=== PATIENT | female | born 1960 | race Two or more races ===

== ENCOUNTER 2021-06-08 19:18 | Inpatient (IN) | payer OTHER ==
[~2021-06-08] VITALS: Ht 170.2 cm; Wt 68.0 kg
--- NOTE | 2021-06-08 19:35 | NUR ---
Pt brought back to room ED4A by triage nurse Eligio via RA due to r/o rt ankle FX. Pt seems to be in a great deal of pain based on her moning and grimacing. Pt placed on ED gurney and connected to monitor. Pt has IV on her Lt wrist, patent and flushing well. Inital VSS, PE WNL besides swellingnad contusion of Rt ankle. Pt is complaining of 10/10 pain.
[2021-06-08] MEDS ORDERED: KETOROLAC TROMETHAMINE 15 MG INJ IVP ONE (19:45)
[2021-06-08] MEDS ORDERED: ONDANSETRON 4 MG/2 ML VIAL IV ONE (19:45)
[2021-06-08] MEDS ORDERED: HYDROMORPHONE 1 MG/1 ML DISP.SYRIN IM ONE (19:45)
--- NOTE | 2021-06-08 19:45 | NUR ---
EDMD at bedside to assess pts condition and determine which XRays need to be ordered.
--- NOTE | 2021-06-08 20:00 | NUR ---
EDMD ordered 2 mg of dilaudid, 4 of zofran and 15 of toridol, meds given in an timmons manner due to pts extreme pain vocalization. Pt calmed down right away and states that the meds were very effective. Pt's Rt ankle elevated with gross trendelenburg and a pillow and some blankets underneath her Rt Leg.
[2021-06-08] MEDS ORDERED: KETOROLAC TROMETHAMINE 15 MG INJ ONE (20:09)
[2021-06-08] MEDS ORDERED: ONDANSETRON 4 MG/2 ML VIAL ONE (20:09)
--- NOTE | 2021-06-08 20:10 | NUR ---
Pt's injured Rt leg elevated above level of heart with pillow and blankets and trendelenberg. Ice pack placed on site of pain and swelling. Pt told to remove ice pack in 30 min on and 30 min off. Pt states that is given relief.
[2021-06-08] MEDS ORDERED: HYDROMORPHONE 2 MG/1 ML DISP.SYRIN ONE (20:17)
--- NOTE | 2021-06-08 20:20 | NUR ---
104/56, 79bpm, 97%RA, 16rpm, 1/10 pain.
--- NOTE | 2021-06-08 20:50 | NUR ---
Call placed to Dr. Mercedes's exchange, the orthopod data integrity consultant. The doubling machine operator instructed to expect a call back within 20 min. If no call recieved after 20 min, please recall the exchange.
[2021-06-08 21:07] LABS: HEMATOCRIT 24.7 % (31.2-41.9); MEAN CORPUSCULAR HEMOGLOBIN 25.5 uug (24.7-32.8); MEAN CORPUSCULAR VOLUME 79.5 fL (75.5-95.3); PLATELET COUNT (AUTO) 497 K/uL (179-408)
[2021-06-08 21:14] LABS: CREATININE 1.8 mg/dL (0.6-1.3); POTASSIUM 3.7 mmol/L (3.5-5.1)
[2021-06-08 21:47] LABS: IRON, SERUM 19 ug/dL (50-175)
--- NOTE | 2021-06-08 22:22 | NUR ---
Second call placed to Dr. Mercedes Orthopod for the rt ankle FX in 4A. EDMD still waiting on the ortho consult.
--- NOTE | 2021-06-08 22:28 | NUR ---
Pt is resting comfortably, with audible snoring. Pts VSS, Rt leg still elevated above level of heart and Ice pack on site of swelling and bruising. Told pt to move ice pack every 30min.
--- NOTE | 2021-06-08 22:34 | NUR ---
113/68, 75bpm,98% RA, 16 rpm, 0/10 pain
--- NOTE | 2021-06-08 22:50 | NUR ---
[facility] called regarding pt admission in house for FR of Rt ankle.
--- NOTE | 2021-06-08 23:24 | NUR ---
Dr Mercedes called back and Dr. Busby consulted him regarding pts dispo. We will try to admit pt here.
--- NOTE | 2021-06-08 23:51 | NUR ---
[employer] rep called with authorization number for admission of pt as inpatient for observation. authorization #: [id number] Addendum: 06/08/21 at 2352 by HUONG Correct Authorization #:[id number] other note has typo
[2021-06-09] MEDS ORDERED: MORPHINE SULFATE 2 MG/1 ML DISP.SYRIN IV PRN (00:30)
[2021-06-09] MEDS ORDERED: ACETAMINOPHEN 325 MG TABLET PO PRN (00:30)
[2021-06-09] MEDS ORDERED: MAGNESIUM HYDROXIDE 30 ML LIQUID UDC PO PRN ×2 (00:30→09:00)
[2021-06-09] MEDS ORDERED: Z GUARD REMEDY PASTE 57 GM TUBE TOP PRN ×2 (00:30→09:00)
[2021-06-09] MEDS ORDERED: ONDANSETRON 4 MG/2 ML VIAL IV PRN ×2 (00:30→09:00)
[2021-06-09] MEDS ORDERED: LINA5TAB PO (00:34)
[2021-06-09] MEDS ORDERED: FLUO40CA49 PO (00:34)
[2021-06-09] MEDS ORDERED: INSU100C SUBCUT (00:34)
[2021-06-09] MEDS ORDERED: GABA600T12 PO (00:34)
[2021-06-09] MEDS ORDERED: BUPR-319 PO (00:34)
[2021-06-09] MEDS ORDERED: TRAZ-182 PO (00:34)
[2021-06-09] MEDS ORDERED: METH2.5T PO (00:34)
[2021-06-09] MEDS ORDERED: FOLI1TAB94 PO (00:34)
[2021-06-09] MEDS ORDERED: HYDROMORPHONE 1 MG/1 ML DISP.SYRIN IV ONE (00:45)
[2021-06-09] MEDS ORDERED: HYDROMORPHONE 2 MG/1 ML DISP.SYRIN ONE (00:48)
[2021-06-09] MEDS: IV D5/ 0.9% NACL 1,000 ML IV PRN ×2 (01:22→06:28)
--- NOTE | 2021-06-09 01:23 | NUR ---
Pt was recieving second round of pain meds. Dilaudid 3mg IV administered without difficulty and pt states feeling relief and tolerated well. However, upon connecting the 1L D5NS, I noticed that the IV site was infiltrated and that fluid was collecting in the SubQ space. IV shut off immediately and pt assessed for pain at the IV site. Pt denied the infiltration hurting . IV Dced from Rt wrist and site dressed with bulky dressing. IV will be restarted on opposite arm.
--- NOTE | 2021-06-09 01:29 | NUR ---
Reassessed pts pain level after dilaudid administration. Pt states her pain is still at a 7/10. I informed pt that she has a prn order for both morphine and APAP and that if she is still in pain she can ask for more pain medication. I offered to give her morphine but she refused and said she will let me know if she needs more medication or if she is feeling nauseated and would like an anti-emetic.
[2021-06-09 06:20] LABS: CREATININE 2.2 mg/dL (0.6-1.3); MAGNESIUM 2.1 mg/dL (1.8-2.4); PHOSPHOROUS 4.4 mg/dL (2.5-4.9); POTASSIUM 5.3 mmol/L (3.5-5.1)
[2021-06-09 06:21] LABS: MEAN CORPUSCULAR HEMOGLOBIN 25.9 uug (24.7-32.8); MEAN CORPUSCULAR VOLUME 81.2 fL (75.5-95.3); PLATELET COUNT (AUTO) 435 K/uL (179-408)
--- NOTE | 2021-06-09 06:30 | NUR ---
Pt being premedicated with morphine 2mg before splint application.
[2021-06-09] MEDS ORDERED: MORPHINE SULFATE 2 MG/1 ML DISP.SYRIN ONE (06:40)
--- NOTE | 2021-06-09 07:23 | NUR ---
.After gathering the supplies needed for splint application, pt prepared with brief primer of the procedure so that she is aware of what is about to happen. Pt informed that splint application will proceed quickly due to the short hardening time of the fiberglass material; after wetting the splint material, I only have a few minutes to apply splint and make sure it is properly positioned and wrapped before the fiberglass material gets too hard and and is unmaliable. Pt's skin is protected from the splint material using 6in and 3 in stockinette. Site is prepared first, rt ankle is thoroughly padded and awaiting splint application. splint thoroughly and completely wet and saturated with cold H2O; then thoroughly dried using large bath towels. First posterior shortleg applied using 4in OCL x36in. then stir-up splint placed over the posterior shortleg utilizing a second pair of hands to keep everything in place. Finally once proper positioning ensured, and that the splint is not pinching or poking pt anywhere, the splint is carefully and methodically wrapped using 6in clemente x2, making sure not to wrap clemente too tight due to elastic nature of clemente and its tendency to become too constictive. Pt had good CMS and cap refill less then 3 sec before and after splint application. Pt educated on what to look for when assessing splint and making sure its not constricting blood flow. Pt also tought about RICE and proper management and care of splint until ortho unwraps it. pt tolerated well with very little associated pain 4/10 at most painful point of procedure.
--- NOTE | 2021-06-09 08:53 | NUR ---
thorough Report just given to [facility] KASSY Daigle using SBAR method. [facility] gave green light to transport pt at our earliest convienience. Pt is being loaded up and prepared for transfer to [facility]. VSS, PE WNL, pt has good color and appearance. no s/sx of distess present. Pt resting comfortably.
[2021-06-09 09:30] VITALS: BP 101/43
--- NOTE | 2021-06-09 09:38 | NUR ---
Received patient from ED via [facility]. Patient awake, alert and oriented x 4. On room air. No signs of acute distress. Denies pain at this time. Oriented patient to unit and room. Call light within reach. Bed alarm on for safety. BP 101/43 HR 69 RR 16. Will continue to monitor.
[2021-06-09 12:00] VITALS: BP 92/44
[2021-06-09] MEDS ORDERED: INSULIN REGULAR, HUMAN 300 UNIT/3 ML VIAL SQ PRN (14:45)
[2021-06-09] MEDS ORDERED: DEXTROSE 50% 50 ML DISP.SYRIN IV PRN ×2 (14:45→15:15)
[2021-06-09 15:19] VITALS: BP 102/45
[2021-06-09] MEDS ORDERED: IV NORMAL SALINE 500 ML IV ONE (15:45)
[2021-06-09] MEDS ORDERED: DEXTROSE 50% 50 ML DISP.SYRIN IV ONE (15:45)
[2021-06-09] MEDS ORDERED: INSULIN REGULAR, HUMAN 300 UNIT/3 ML VIAL IV ONE (15:45)
[2021-06-09] MEDS ORDERED: BLOOD SUGAR DIAGNOSTIC 1 EACH STRIP VI SCH (16:30)
[2021-06-09] MEDS: BLOOD SUGAR DIAGNOSTIC 1 EACH STRIP VI SCH ×2 (17:15→21:30)
[2021-06-09] MEDS: INSULIN REGULAR, HUMAN 300 UNIT/3 ML VIAL SQ PRN ×2 (17:59→21:31)
[2021-06-09 18:44] VITALS: BP 100/42
--- NOTE | 2021-06-09 18:45 | NUR ---
Patient resting in bed. Aox3-4. On room air. No signs of acute distress. Patient denies pain at this time. BP 100/42. Compliant with medications and care. IV access patent and intact. Scheduled Right ankle ORIF in am. Consent in chart. Will endorse to incoming shift for continuity of care.
--- NOTE | 2021-06-09 19:10 | NUR ---
Received patient lying in bed. AAOX4, icelandic speaking with limited Sierra Leonean. On room air. IVF on L AC running D5 1/ NS at 100cc/hr. Patient complained of pain at right ankle Tylenol 325mg (2tablets) were given and tolerated well. Reminded patient regarding surgery tomorrow, to be kept on NPO after midnight. Safety precautions initiated. Will continue to monitor.
[2021-06-09 20:00] VITALS: BP 126/65
--- NOTE | 2021-06-09 20:30 | NUR ---
Collected nasal swab, for COVID antigen testing. Sent to lab.
[2021-06-09] MEDS: ACETAMINOPHEN 325 MG TABLET PO PRN (21:33)
[2021-06-09] MEDS: MORPHINE SULFATE 2 MG/1 ML DISP.SYRIN IV PRN (22:51)
[2021-06-10] VITALS (8 sets, daily range): BP systolic 108–141; BP diastolic 40–61
--- NOTE | 2021-06-10 | NUR ---
Patient rapid test came back negative.
--- NOTE | 2021-06-10 01:00 | NUR ---
IV on LAC, accidentally got dislodged. Reinserted new IV on R FA, 20 gauge, infusing well.
--- NOTE | 2021-06-10 03:40 | NUR ---
Urine collected and sent to lab.
[2021-06-10] MEDS: IV D5/ 0.9% NACL 1,000 ML IV PRN ×2 (04:17→16:24)
[2021-06-10] MEDS: MORPHINE SULFATE 2 MG/1 ML DISP.SYRIN IV PRN ×3 (05:35→19:35)
[2021-06-10 05:42] LABS: *BILIRUBIN,URIN NEGATIVE (NEGATIVE); *BLOOD, URINE 1+ (NEGATIVE); *COLOR,URINE YELLOW (YELLOW); *KETONES,URINE NEGATIVE (NEGATIVE); *UROBILINOGEN,URINE 0.2 E.U./dl (NORMAL); LEUKOCYTE ESTERASE ,URINE 2+ (NEGATIVE); NITRITE, URINE NEGATIVE (NEGATIVE); PH,URINE 5.5 (5.0-8.0); UGLUCOSE 1+ (NEGATIVE)
[2021-06-10 06:00] LABS: *CLARITY,URINE HAZY (CLEAR)
--- NOTE | 2021-06-10 06:16 | NUR ---
Patient slept intermittently through the night, with frequent complaints of pain at right ankle. Pain medication and cooling measures done to reduce pain. IVF on RFA, 20 gauge, infusing well. Patient kept on NPO in preparation for surgery. Pre-op checklist completed. All needs were attended to and met. Safety precautions maintained. Will endorse to day shift.
[2021-06-10 06:32] LABS: MEAN CORPUSCULAR VOLUME 80.2 fL (75.5-95.3); PLATELET COUNT (AUTO) 310 K/uL (179-408)
[2021-06-10] MEDS ORDERED: VANCOMYCIN 1000 MG VIAL ONE (07:09)
[2021-06-10] MEDS ORDERED: BUPIVACAINE 0.25% 30 ML VIAL ONE (07:09)
[2021-06-10 07:11] LABS: HEMATOCRIT 20.6 % (31.2-41.9)
[2021-06-10 07:25] LABS: PHOSPHOROUS 3.1 mg/dL (2.5-4.9)
[2021-06-10] MEDS: BLOOD SUGAR DIAGNOSTIC 1 EACH STRIP VI SCH ×4 (07:39→21:09)
--- NOTE | 2021-06-10 07:40 | NUR ---
Received critical lab report from laboratory. Patient's HGB 6.7 and [address]6. Both Dr. Mercedes and Antoine INSTALLATION TECHNICIAN were advised accordingly. Antoine INSTALLATION TECHNICIAN ordered 2 prbcs. Will endorse to day shift.
--- NOTE | 2021-06-10 11:30 | NUR ---
Blood transfusion started. BP 141/49 HR 86 Temp 101.1. Patient refused Tylenol at this time. Cooling measures done. Will continue to monitor.
[2021-06-10] MEDS: INSULIN REGULAR, HUMAN 300 UNIT/3 ML VIAL SQ PRN ×3 (12:13→21:02)
[2021-06-10] MEDS: ACETAMINOPHEN 325 MG TABLET PO PRN ×2 (12:36→20:50)
[2021-06-10 17:48] LABS: BACTERIA,URINE MODERATE /HPF (NONE SEEN); SQUAMOUS EPITHELIAL CELL,UR MANY /HPF (NONE SEEN); WBC,URINE 20-50 /HPF (0-3)
--- NOTE | 2021-06-10 19:35 | NUR ---
Patient resting in bed. AOx4. On room air. No signs of acute distress. Patient denies pain/ discomfort at this time. Needs anticipated and met. Will endorse to incoming shift for continuity of care.
[2021-06-11] MEDS: IV D5/ 0.9% NACL 1,000 ML IV PRN (03:34)
[2021-06-11 04:00] VITALS: BP 123/52
[2021-06-11] MEDS: ACETAMINOPHEN 325 MG TABLET PO PRN (04:32)
[2021-06-11] MEDS: MORPHINE SULFATE 2 MG/1 ML DISP.SYRIN IV PRN ×2 (05:51→23:35)
[2021-06-11] MEDS ORDERED: MORPHINE SULFATE 4 MG/1 ML DISP.SYRIN ONE (05:52)
[2021-06-11] MEDS: BLOOD SUGAR DIAGNOSTIC 1 EACH STRIP VI SCH ×4 (06:17→21:22)
[2021-06-11] MEDS: INSULIN REGULAR, HUMAN 300 UNIT/3 ML VIAL SQ PRN ×4 (06:17→21:24)
[2021-06-11 07:03] LABS: HEMATOCRIT 23.1 % (31.2-41.9); MEAN CORPUSCULAR HEMOGLOBIN 26.4 uug (24.7-32.8); MEAN CORPUSCULAR VOLUME 79.8 fL (75.5-95.3); PLATELET COUNT (AUTO) 289 K/uL (179-408)
[2021-06-11 07:23] LABS: CREATININE 1.6 mg/dL (0.6-1.3); MAGNESIUM 1.7 mg/dL (1.8-2.4); PHOSPHOROUS 2.9 mg/dL (2.5-4.9); POTASSIUM 4.7 mmol/L (3.5-5.1)
[2021-06-11] MEDS ORDERED: VANCOMYCIN 1000 MG VIAL ONE (08:03)
[2021-06-11] MEDS ORDERED: HYDROMORPHONE 2 MG/1 ML DISP.SYRIN ONE (08:04)
[2021-06-11] MEDS ORDERED: BUPIVACAINE 0.25% 30 ML VIAL ONE (08:05)
[2021-06-11] MEDS ORDERED: MIDAZOLAM HCL 2 MG/2 ML VIAL ONE (08:05)
[2021-06-11] MEDS ORDERED: CEFAZOLIN 1 G VIAL ONE (08:06)
[2021-06-11] MEDS ORDERED: NORMAL SALINE 10 ML VIAL ONE (08:07)
[2021-06-11] MEDS ORDERED: MAGNESIUM SULFATE/D5W 100 ML IV SCH (09:30)
[2021-06-11] MEDS ORDERED: LIDOCAINE-MPF 2% 5 ML VIAL IJ ONE (09:37)
[2021-06-11] MEDS ORDERED: SEVOFLURANE 250 ML BOTTLE IH ONE (09:37)
[2021-06-11] MEDS ORDERED: DEXAMETHASONE SOD PHOSPHATE 4 MG INJ IV ONE (09:37)
[2021-06-11] MEDS ORDERED: CEFAZOLIN 1 G VIAL IM ONE (09:37)
[2021-06-11] MEDS ORDERED: ONDANSETRON 4 MG/2 ML VIAL IV ONE (09:37)
[2021-06-11] MEDS ORDERED: KETOROLAC TROMETHAMINE 30 MG INJ IM ONE (09:37)
[2021-06-11] MEDS ORDERED: PROPOFOL 200 MG/20 ML BOTTLE IV ONE (09:37)
[2021-06-11] MEDS ORDERED: IV NS 1000 ML 1,000 ML IV PRN (11:00)
[2021-06-11 12:00] VITALS: BP 122/56
[2021-06-11] MEDS ORDERED: POTASSIUM CHLORIDE 20 MEQ in IV D5 1/2 NS 1000 ML 1,000 ML IV PRN (12:00)
[2021-06-11] MEDS ORDERED: Medication Not On Formulary EA (Gabapentin 600 MG) PO SCH (13:00)
[2021-06-11] MEDS: IV NS 1000 ML 1,000 ML IV PRN (14:59)
[2021-06-11] MEDS: CEFAZOLIN 1 G in IV DEXTROSE 5% 50 ML IV SCH ×2 (15:04→23:35)
[2021-06-11] MEDS: LOSARTAN POTASSIUM 50 MG TABLET PO SCH (15:05)
[2021-06-11] MEDS: GABAPENTIN 300 MG CAPSULE PO SCH ×2 (15:05→17:47)
[2021-06-11 16:00] VITALS: BP 127/54
[2021-06-11] MEDS: TRAZODONE 50 MG TABLET PO SCH (21:06)
[2021-06-11] MEDS: INSULIN GLARGINE,HUM 300 UNITS/3 ML CARTRIDGE SQ SCH (21:24)
[2021-06-12] MEDS: IV NS 1000 ML 1,000 ML IV PRN (06:27)
[2021-06-12] MEDS: BLOOD SUGAR DIAGNOSTIC 1 EACH STRIP VI SCH ×4 (06:33→22:22)
--- NOTE | 2021-06-12 06:44 | NUR ---
PATIENT AWAKE IN BED. NO C/O PAIN AT THIS TIME. SLEPT WELL. ELEVATED ON PILLOWS AND Addendum: 06/12/21 at 0647 by LIVIA ANTONY LVN NEURO-VASCULAR CHECKS WNL. SENSATION PRESENT. VS WNL. IVF INFUSING WELL. CALL LIGHT IN REACH. ALL NEEDS ATTENDED. WILL CONTINUE TO MONITOR AND ASSESS.
[2021-06-12 06:47] VITALS: BP 108/59
--- NOTE | 2021-06-12 07:15 | NUR ---
Patient asleep in bed. On room air. No signs of acute distress. Will continue to monitor.
[2021-06-12 08:12] VITALS: BP 115/58
[2021-06-12] MEDS: INSULIN REGULAR, HUMAN 300 UNIT/3 ML VIAL SQ PRN ×4 (08:26→22:21)
[2021-06-12] MEDS: GABAPENTIN 300 MG CAPSULE PO SCH ×3 (08:37→16:22)
[2021-06-12] MEDS: FLUOXETINE HCL 20 MG CAPSULE PO SCH (08:37)
[2021-06-12] MEDS: LINAGLIPTIN 5 MG TABLET PO SCH (08:37)
[2021-06-12] MEDS: buPROPion XL 150 MG TAB.SR.24H PO SCH (08:37)
[2021-06-12] MEDS: LOSARTAN POTASSIUM 50 MG TABLET PO SCH (08:38)
[2021-06-12 08:45] LABS: HEMATOCRIT 24.6 % (31.2-41.9); MEAN CORPUSCULAR HEMOGLOBIN 26.3 uug (24.7-32.8); MEAN CORPUSCULAR VOLUME 80.3 fL (75.5-95.3); PLATELET COUNT (AUTO) 336 K/uL (179-408)
[2021-06-12] MEDS ORDERED: FLUOXETINE HCL 80 MG PO SCH (09:00)
[2021-06-12] MEDS ORDERED: Medication Not On Formulary EA (Bupropion Hcl (Bupropion Xl) 300 MG) PO SCH (09:00)
[2021-06-12 09:17] LABS: CREATININE 1.5 mg/dL (0.6-1.3); MAGNESIUM 2.3 mg/dL (1.8-2.4); PHOSPHOROUS 3.5 mg/dL (2.5-4.9); POTASSIUM 5.6 mmol/L (3.5-5.1)
[2021-06-12] MEDS: MORPHINE SULFATE 2 MG/1 ML DISP.SYRIN IV PRN ×2 (10:07→20:25)
[2021-06-12] MEDS ORDERED: IV NS 1000 ML 1,000 ML IV ONE (10:30)
[2021-06-12 13:17] VITALS: BP 109/42
[2021-06-12 17:15] VITALS: BP 98/40
--- NOTE | 2021-06-12 18:29 | NUR ---
Patient resting bed. AOx3-4. On room air. No signs of acute distress. Patient complained of pain, Morphine IV PRN given and patient tolerated well and expressed relief. IV access patent and intact, NS running at 100cc/hr. Compliant with medications and care. Bed alarm on. Call light within reach. Will endorse to incoming shift for continuity of care.
[2021-06-12 20:00] VITALS: BP 121/58
--- NOTE | 2021-06-12 20:00 | NUR ---
PATIENT ALERT ORIENTED SPEAK AMERICAN, EROSION CONTROL SPECIALIST ABLE TO INTERPRET FOR THE PATIENT, PATIENT COMPLAIN OF R ANKLE PAIN, WILL MEDICATE ORDERED, PATIENT WAS ENCOURAGED TO USE INCENTIVE SPIROMETER TO PREVENT SURGICAL COMPLICATIONS, PATIENT TOLERATE PO, AND VOIDING WELL, CONT TO MONITOR
[2021-06-12] MEDS: TRAZODONE 50 MG TABLET PO SCH (20:15)
[2021-06-12] MEDS ORDERED: SODIUM POLYSTYRENE SULFONATE 15 G/60 ML LIQUID UDC PO ONE (21:15)
[2021-06-12] MEDS: INSULIN GLARGINE,HUM 300 UNITS/3 ML CARTRIDGE SQ SCH (22:20)
[2021-06-13 04:56] VITALS: BP 120/53
[2021-06-13] MEDS: BLOOD SUGAR DIAGNOSTIC 1 EACH STRIP VI SCH ×4 (06:40→20:25)
--- NOTE | 2021-06-13 06:46 | NUR ---
PATIENT AWAKE, NO SOB NO CHEST PAIN, PATIENT R ANKLE STILL SWOLEEN, COLOR PINK, NO NUMBNESS NOTED, DENIES AT THIS TIME, KEPT ELEVATED, NO BM YET, GIVEN KAYEXALATE LAST NIGHT FOR ELEVATED KCL, WEARS DIAPERS, KEPT CLEAN AND DRY. DENIES PAIN.
[2021-06-13 08:32] LABS: CREATININE 1.6 mg/dL (0.6-1.3); MAGNESIUM 2.2 mg/dL (1.8-2.4); POTASSIUM 4.8 mmol/L (3.5-5.1)
[2021-06-13 08:34] LABS: HEMATOCRIT 22.4 % (31.2-41.9); MEAN CORPUSCULAR HEMOGLOBIN 26.7 uug (24.7-32.8); MEAN CORPUSCULAR VOLUME 81.4 fL (75.5-95.3); PLATELET COUNT (AUTO) 337 K/uL (179-408)
[2021-06-13] MEDS: INSULIN REGULAR, HUMAN 300 UNIT/3 ML VIAL SQ PRN ×4 (08:38→20:31)
[2021-06-13] MEDS: IV NS 1000 ML 1,000 ML IV PRN (08:39)
--- NOTE | 2021-06-13 09:05 | NUR ---
Critical lab value: Hemoglobin 7.3. Dr. Rodrigues informed.
[2021-06-13] MEDS: FLUOXETINE HCL 20 MG CAPSULE PO SCH (09:28)
[2021-06-13] MEDS: LINAGLIPTIN 5 MG TABLET PO SCH (09:28)
[2021-06-13] MEDS: GABAPENTIN 300 MG CAPSULE PO SCH ×3 (09:28→17:04)
[2021-06-13] MEDS: LOSARTAN POTASSIUM 50 MG TABLET PO SCH (09:29)
[2021-06-13] MEDS: buPROPion XL 150 MG TAB.SR.24H PO SCH (09:33)
[2021-06-13] MEDS: levoFLOXacin 250 MG TABLET PO SCH (10:25)
[2021-06-13 12:00] VITALS: BP 100/50
[2021-06-13] MEDS: SOD FERRIC GLUC COMPLX/SUCROSE 125 MG in IV NORMAL SALINE 100 ML IV SCH (15:30)
[2021-06-13 16:00] VITALS: BP_SYST 116; BP_SYST 146; BP_DIAS 52; BP_DIAS 54
[2021-06-13] MEDS: MORPHINE SULFATE 2 MG/1 ML DISP.SYRIN IV PRN (17:04)
[2021-06-13] MEDS: ACETAMINOPHEN 325 MG TABLET PO PRN (20:16)
[2021-06-13] MEDS: TRAZODONE 50 MG TABLET PO SCH (20:17)
[2021-06-13 20:58] VITALS: BP 138/59
[2021-06-13] MEDS ORDERED: INSULIN GLARGINE,HUM 300 UNITS/3 ML CARTRIDGE SQ SCH (21:00)
[2021-06-14] MEDS: MORPHINE SULFATE 2 MG/1 ML DISP.SYRIN IV PRN (04:43)
[2021-06-14] MEDS: IV NS 1000 ML 1,000 ML IV PRN (04:44)
[2021-06-14 04:45] VITALS: BP 121/52
--- NOTE | 2021-06-14 06:44 | NUR ---
Patient slept throughout the night. AO x 4. Peruvian speaking but able to verbalize needs. On room air saturating at 97%. No signs of acute distress. IS by bedside. Educated pt importance on IS and breathing techniques. Pt compliant with medication and care. Morphine 2mg IVP given for pain. Effective. IV in R Wrist #20 running NS at 43ml/hr. Needs have been met. Call lights within reach, safety measures maintained. Will endorse to am shift.
[2021-06-14] MEDS: BLOOD SUGAR DIAGNOSTIC 1 EACH STRIP VI SCH ×2 (07:23→12:47)
[2021-06-14] MEDS: GABAPENTIN 300 MG CAPSULE PO SCH ×2 (08:52→12:50)
[2021-06-14] MEDS: INSULIN REGULAR, HUMAN 300 UNIT/3 ML VIAL SQ PRN ×2 (08:52→12:49)
[2021-06-14] MEDS: LINAGLIPTIN 5 MG TABLET PO SCH (08:53)
[2021-06-14] MEDS: buPROPion XL 150 MG TAB.SR.24H PO SCH (08:53)
[2021-06-14] MEDS: FLUOXETINE HCL 20 MG CAPSULE PO SCH (08:53)
[2021-06-14] MEDS: levoFLOXacin 250 MG TABLET PO SCH (08:55)
[2021-06-14] MEDS ORDERED: FOLIC ACID 1 MG TABLET PO SCH (09:00)
[2021-06-14] MEDS ORDERED: LOSARTAN POTASSIUM 50 MG TABLET PO SCH (09:00)
[2021-06-14] MEDS ORDERED: LOSARTAN POTASSIUM 25 MG TABLET PO SCH (11:30)
[2021-06-14 12:00] VITALS: BP 124/60
--- NOTE | 2021-06-14 12:05 | NUR ---
PATIENT SEEN AND EXAMINED BY DR CLIFFORD WITH NO NEW ORDERS AT THIS TIME
[2021-06-14] MEDS ORDERED: SULF1TAB48 PO (12:09)
--- NOTE | 2021-06-14 12:11 | NUR ---
NEW ORDER NOTED TO DISCHARGE PATIENT HOME TODAY WITH HOME HEALTH AWAITING FOR THE PLUG OVERWRAP MACHINE TENDER ELECTROTYPER TO ARRANGE TRANSPORTATION AND ARRANGE FOR HOME HEALTH FOLL0W UP
[2021-06-14] MEDS: SOD FERRIC GLUC COMPLX/SUCROSE 125 MG in IV NORMAL SALINE 100 ML IV SCH (14:00)
--- NOTE | 2021-06-14 14:10 | NUR ---
PATIENT IS BEING DISCHARGED HER DAUGHTER IS AT THE BEDSIDE TO PICK HER UP IN THE PROCESS OF DISCHARGE PAPERS WANTS RIGO REMOVED UNABLE TO GIVE FERRILICIT ORDERED
--- NOTE | 2021-06-14 14:30 | NUR ---
CALLED DR GALLEGOS OFFICE AND LEFT HIM A MESSAGE RE PATIENT IS BEING DISCHARGED HOME TODAY WANTED TO KNOW IF HE HAS ANY ORDERS RE RIGHT ANKLE AWAITING FOR RETURN CALL
--- NOTE | 2021-06-14 15:30 | NUR ---
PER THE BRASS SORTER OKAY TO D/C SHE IS STILL AWAITING FOR THE PATIENTS INSURANCE TO RESPOND RE HOME HEALTH STATED THAT THE HOME HEALTH AGENCY WILL REACH OUT TO THEM AT THEIR HOME ONCE ITS APPROVED.
--- NOTE | 2021-06-14 15:45 | NUR ---
PATIENT DIS CHARGED PICKED UP BY HER DAUGHTER KAROLINE IN SATISFACTORY CONDITION WITH DISCHARGE INSTRUCTIONS AND PATIENT INSTRUCTED ON HER MEDICATIONS THAT WAS SENT ELECTRONICALLY,WEIGHT BEARING STATUS WHICH IS NON WEIGHT BEARING AT THE MOMENT TO HER RIGHT LOWER EXT.TAKE HER ANTIBIOTICS ORDERED FOLLOW UP WITH DR GALLAGHER AND HER PRIMARY DOCTOR INSTRUCTED AND PATIENTS DAUGHTER EXPRESSED UNDERSTANDING ASSISTED VIA W/CHAIR TO HER DAUGHTERS CAR BY THE ASSIGNED MAGAZINE WRITER.
[2021-06-14 16:00] VITALS: BP 136/66
== END 2021-06-14 15:45 | disposition home health service (06) | DRG 492 ==
LOC: ER 19:34 → MEDSURG3 06-09 09:11
PROVIDERS: ADMIT Registered Nurse; ATTEND Internal Medicine
PROC: 30233N1 Transfusion of Nonautologous Red Blood Cells into Peripheral Vein, Percutaneous Approach (ICD-10-PCS; 2021-06-10)
PROC: 0QSJ04Z Reposition Right Fibula with Internal Fixation Device, Open Approach (ICD-10-PCS; principal; 2021-06-11)
PROC: 0QSG04Z Reposition Right Tibia with Internal Fixation Device, Open Approach (ICD-10-PCS; 2021-06-11)
DX: S82.861A Displaced Maisonneuve's fracture of right leg, initial encounter for closed fracture (principal); J15.9 Unspecified bacterial pneumonia; E87.1 Hypo-osmolality and hyponatremia; N39.0 Urinary tract infection, site not specified; N17.9 Acute kidney failure, unspecified; W18.30XA Fall on same level, unspecified, initial encounter; I12.9 Hypertensive chronic kidney disease with stage 1 through stage 4 chronic kidney disease, or unspecified chronic kidney disease; E11.22 Type 2 diabetes mellitus with diabetic chronic kidney disease; E11.65 Type 2 diabetes mellitus with hyperglycemia; N18.9 Chronic kidney disease, unspecified; Z79.4 Long term (current) use of insulin; E87.5 Hyperkalemia; D75.839 Thrombocytosis, unspecified; D72.829 Elevated white blood cell count, unspecified; I95.9 Hypotension, unspecified; D50.9 Iron deficiency anemia, unspecified; Y93.9 Activity, unspecified; Y92.009 Unspecified place in unspecified non-institutional (private) residence as the place of occurrence of the external cause; Z20.822 Contact with and (suspected) exposure to COVID-19
CPT/HCPCS: 36415; 71045; 73590; 73610; 83550; 83735; 84100; 85025; 85730; 86850; 86900; 86901; 86920; 87077; 87086; 93005; 93307; 97161; A4663; C1713; G0378; J0690; J1100; J1170; J1815; J1885; J1956; J2250; J2270; J2405; J2916; J3370; J3475; J3480; J3490; J7030; J7040; J7042; J7060; P9016